=== PATIENT | female | born 1965 ===

== ENCOUNTER 2018-08-30 10:33 | Day surgery (SDC) | payer BC ==
[2016-10-21 08:46] VITALS: BMI 26.6
--- NOTE | 2018-08-30 13:45 | CP.SDSHP ---
Same Day Surgery H & P - History Proposed Procedure: colonoscopy Pre-Op Diagnosis: screening - Previous Medical/Surgical History Cardiac: Hypertension - Allergies Allergies: Allergies latex Allergy (Verified 08/30/18 10:57) ITCHING - Physical Exam General Appearance: NAD Vital Signs: Vital Signs 08/30/18 10:40 Temperature 98 F Pulse Rate 77 Respiratory 18 Rate Blood Pressure 110/93 H O2 Sat by Pulse 99 Oximetry Mental Status: Alert & Oriented x3 Neuro: WNL Heart: WNL Lungs: WNL GI: WNL - {Optional Preform as Required} Abdomen: WNL - Impression Pt. Evaluated Today:Candidate for Anesthesia & Procedure: Yes - Date & Time Date: 08/30/18 Time: 13:45 Short Stay Discharge - Short Stay Discharge Admitting Diagnosis/Reason for Visit: ENCOUNTER FOR SCREENING FOR MALIGNANT NEOPLASM OF Disposition: HOME/ ROUTINE
[2018-08-30] MEDS ORDERED: Propofol 10 mg/ml Inj (20 ML) ONE (13:50)
[2018-08-30 14:33] VITALS: TEMP 97.8
[2018-08-30 15:05] VITALS: BP 120/85; PULSE 69; RESP 15; O2SAT 98
== END 2018-08-30 15:26 | disposition home or self-care (01) ==
LOC: C.ENDO 10:33
PROVIDERS: ATTEND Internal Medicine Gastroenterology
DX: Z12.11 Encounter for screening for malignant neoplasm of colon (principal); D12.7 Benign neoplasm of rectosigmoid junction; K64.8 Other hemorrhoids
CPT/HCPCS: 45384; 84703; 88305; J2001; J2704